=== PATIENT | female | born 1950 | race Caucasian/White ===

== ENCOUNTER → 2020-07-21 13:11 | Outpatient (BNVA) | payer MEDICARE, OTHER, SELFPAY | PROVIDERS: PCP Internal Medicine; Visit Provider Student in an Organized Health Care Education/Training Program | DX: Z13.89 Encounter for screening for other disorder (principal) | CPT/HCPCS: Q3014 ==

== ENCOUNTER → 2021-02-23 13:43 | Outpatient (BNVA) | payer MEDICARE, OTHER, SELFPAY | PROVIDERS: PCP Internal Medicine; Visit Provider Student in an Organized Health Care Education/Training Program | DX: M31.6 Other giant cell arteritis (principal); M34.9 Systemic sclerosis, unspecified; M81.0 Age-related osteoporosis without current pathological fracture; J84.9 Interstitial pulmonary disease, unspecified; I27.20 Pulmonary hypertension, unspecified; F17.210 Nicotine dependence, cigarettes, uncomplicated; Z88.2 Allergy status to sulfonamides; Z88.8 Allergy status to other drugs, medicaments and biological substances; Z79.52 Long term (current) use of systemic steroids; Z79.899 Other long term (current) drug therapy | CPT/HCPCS: 99212 ==

== ENCOUNTER 2021-10-11 10:44 | Outpatient (REF) | payer MEDICARE, OTHER, SELFPAY ==
[2021-10-11 13:40] LABS: Alanine Aminotransferase 10 U/L (0-31); Albumin Level 4.4 g/dL (3.5-5.0); Alkaline Phosphatase 93 U/L (39-117); Anion Gap 16 (12-20); Aspartate Amino Transferase 21 U/L (5-31); Bilirubin Total 0.6 mg/dL (0.0-1.0); Blood Urea Nitrogen 12 mg/dL (9-16); Calcium 10.1 mg/dL (8.4-10.2); Carbon Dioxide 24 mmol/L (22-29); Chloride 104 mmol/L (96-108); Estimated Glomerular Filt Rate > 60; Glucose Random 82 mg/dL (60-115); Potassium 4.1 mmol/L (3.3-5.1); Sodium 140 mmol/L (135-145); Total Protein 7.6 g/dL (6.5-8.0)
[2021-10-11 16:26] LABS: Erythrocyte Sedimentation Rate 86 MM/HR (0-20)
[2021-10-15 13:26] LABS: Vitamin D 25-OH, D2 <4 ng/mL; Vitamin D 25-OH, D3 39 ng/mL; Vitamin D 25-OH, Total 39 ng/mL (30-100)
== END 2021-10-11 10:45 | disposition home or self-care (01) ==
LOC: HO.LAB 10:44
PROVIDERS: PCP Internal Medicine; Visit Provider Internal Medicine Rheumatology
DX: M31.6 Other giant cell arteritis (principal); M34.9 Systemic sclerosis, unspecified; M81.0 Age-related osteoporosis without current pathological fracture; Z79.52 Long term (current) use of systemic steroids
CPT/HCPCS: 36415; 80053; 82306; 85652; 86140; 99212

== ENCOUNTER 2021-11-08 13:34 | Outpatient (REF) | payer MEDICARE, OTHER, SELFPAY ==
--- NOTE | ~2021-11-08 | XR_ITS ---
EXAMINATION: XR LUMBOSACRAL SPINE CLINICAL INFORMATION: Long-term use of steroids COMPARISON: None TECHNIQUE: Three views of the lumbosacral spine. FINDINGS: There is mild curvature of the lumbar spine to the right. There are multiple compression fractures and post kyphoplasty change of the T11 T12 L1 and L5 vertebral bodies. There is severe L2 compression fracture and moderate L3 compression fracture. These do not appear acute. There may be a severe T9 vertebral body compression fracture. Disc spaces are normal. There is lower lumbar spine facet arthritis. There is atherosclerotic disease. XR/XR lumbar spine 2-3V IMPRESSION: Multiple lower thoracic and lumbar vertebral body compression fractures.
== END 2021-11-08 13:35 | disposition home or self-care (01) ==
LOC: HO.XRAY 13:34
PROVIDERS: PCP Internal Medicine; Visit Provider Internal Medicine Rheumatology
DX: M81.0 Age-related osteoporosis without current pathological fracture (principal); Z79.52 Long term (current) use of systemic steroids
CPT/HCPCS: 72100

== ENCOUNTER 2021-11-22 10:39 | Outpatient (REF) | payer MEDICARE, OTHER, SELFPAY ==
[2021-11-22 12:31] LABS: MANUAL DIFF FLAG NO
[2021-11-22 13:18] LABS: Basophils Absolute Auto 0.1 X10*3/uL (0.0-0.2); Basophils Percent Auto 0.8 % (0-2); Eosinophils Absolute Auto 0.1 X10*3/uL (0.0-0.4); Eosinophils Percent Auto 0.8 % (0-4); Hematocrit 37.4 % (37.0-47.0); Hemoglobin 12.3 g/dl (12.0-16.0); Imm Gran Abs Auto 0.05 X10*3/uL (0.00-0.03); Imm Gran Pct Auto 0.4 % (0.0-0.4); Lymphocytes Absolute Auto 2.9 X10*3/uL (1.2-4.9); Mean Corpuscular HGB Conc 32.9 g/dl (31.0-35.0); Mean Corpuscular Volume 91.2 fL (80.0-98.0); Mean Platelet Volume 8.6 fL (9.4-12.3); Monocytes Absolute Auto 1.1 X10*3/uL (0.1-1.2); Monocytes Percent Auto 8.6 % (2-11); Neutrophils Percent Auto 65.4 % (45-73); Platelet Count 287 X10*3/uL (160-400); White Blood Count 12.2 X10*3/uL (4.8-10.8)
[2021-11-22 13:45] LABS: C Reactive Protein 0.34 mg/dL (< or = 0.50)
[2021-11-22 14:04] LABS: Erythrocyte Sedimentation Rate 17 MM/HR (0-20)
[2021-11-23 13:16] LABS: Prot Elec - Alpha1 0.2 g/dL (0.2-0.3); Prot Elec - Beta 1 0.5 g/dL (0.4-0.6); Prot Elec - Beta 2 0.4 g/dL (0.2-0.5); Prot Elec - Gamma 0.8 g/dL (0.8-1.7); Prot Elec - Total Protein 6.9 g/dL (6.1-8.1)
== END 2021-11-22 10:40 | disposition home or self-care (01) ==
LOC: HO.LAB 10:39
PROVIDERS: PCP Internal Medicine; Visit Provider Internal Medicine Rheumatology
DX: M81.0 Age-related osteoporosis without current pathological fracture (principal); R70.0 Elevated erythrocyte sedimentation rate; M31.6 Other giant cell arteritis; M34.9 Systemic sclerosis, unspecified; M47.816 Spondylosis without myelopathy or radiculopathy, lumbar region; Z79.52 Long term (current) use of systemic steroids
CPT/HCPCS: 36415; 84165; 85025; 85652; 86140; 99212

== ENCOUNTER 2022-05-02 12:37 | Outpatient (REF) | payer MEDICARE, OTHER, SELFPAY ==
[2022-05-02 14:58] LABS: C Reactive Protein 0.24 mg/dL (< or = 0.50)
[2022-05-02 15:12] LABS: Erythrocyte Sedimentation Rate 20 MM/HR (0-20)
== END 2022-05-02 12:38 | disposition home or self-care (01) ==
LOC: HO.WFDLDS 12:37
PROVIDERS: Visit Provider Internal Medicine Rheumatology
DX: M31.6 Other giant cell arteritis (principal); M34.9 Systemic sclerosis, unspecified; M81.0 Age-related osteoporosis without current pathological fracture; M47.816 Spondylosis without myelopathy or radiculopathy, lumbar region; Z79.52 Long term (current) use of systemic steroids
CPT/HCPCS: 36415; 85652; 86140; 99212

== ENCOUNTER 2023-02-05 13:46 | Outpatient (REF) | payer MEDICARE, OTHER, SELFPAY | END 2023-02-05 13:47 | disposition home or self-care (01) | LOC: HO.LAB 13:46 | PROVIDERS: PCP Internal Medicine; Visit Provider Internal Medicine Rheumatology | DX: M31.6 Other giant cell arteritis (principal); M47.816 Spondylosis without myelopathy or radiculopathy, lumbar region; M81.0 Age-related osteoporosis without current pathological fracture; M34.9 Systemic sclerosis, unspecified | CPT/HCPCS: 36415; 80048; 85652; 86140; 99212 ==

== ENCOUNTER 2023-07-16 13:53 | Outpatient (REF) | payer MEDICARE, OTHER, SELFPAY ==
[2023-07-16 16:01] LABS: C Reactive Protein 0.17 mg/dL (< or = 0.50)
[2023-07-16 16:26] LABS: Erythrocyte Sedimentation Rate 20 MM/HR (0-20)
[2023-07-20 14:03] LABS: Vitamin D 25-OH, D2 <4 ng/mL; Vitamin D 25-OH, D3 31 ng/mL; Vitamin D 25-OH, Total 31 ng/mL (30-100)
== END 2023-07-16 13:54 | disposition home or self-care (01) ==
LOC: HO.LAB 13:53
PROVIDERS: PCP Internal Medicine; Visit Provider Internal Medicine Rheumatology
DX: M81.0 Age-related osteoporosis without current pathological fracture (principal); M31.6 Other giant cell arteritis; M34.9 Systemic sclerosis, unspecified; M47.816 Spondylosis without myelopathy or radiculopathy, lumbar region
CPT/HCPCS: 36415; 82306; 85652; 86140; 99212

== ENCOUNTER 2023-07-16 13:53 | Outpatient (AMB) | payer MEDICARE, OTHER, SELFPAY ==
[2023-07-16 13:55] VITALS: BP 116/68; PULSE 97; BMI 19.6
--- NOTE | 2023-07-16 13:55 | MHC.OFFVIS ---
Intake Vital Signs 07/16/23 13:55 Height 4 ft 8.5 in Weight 89 lb 1.068 oz BMI 19.6 BP 116/68 Blood Pressure Location Lt brachial Position Sitting Pulse 97 Pulse Source Palpation Intake Visit Reasons: gca Intake Note: Patient presents today to follow up on GCA. Last seen by Juan 02/05/23. 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 Accompanied by: Son Allergies hydroxychloroquine [Plaquenil] Allergy (Intermediate, Verified 07/16/23 13:59) rash nabumetone Allergy (Intermediate, Verified 07/16/23 13:59) rash Sulfa (Sulfonamide Antibiotics) Allergy (Intermediate, Verified 07/16/23 13:59) rash Medication List - Last Reconciled 07/16/23 by Scot Perez MD calcium carbonate-vitamin D3 600 mg-20 mcg (800 unit) (Caltrate with Vitamin D3) 1 tab PO DAILY lansoprazole 30 mg PO DAILY metoclopramide HCl 5 mg PO DAILY multivitamin (Daily Multi-Vitamin tablet) 1 tab PO DAILY prednisone 1 mg PO DAILY HPI HPI Comments History of Present Illness Details The patient presents with his son today for 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 She again describes herself as ?falling apart?. She has difficulty seeing and has been told she needs cataract surgery but so far has declined. She admits she is not able to see enough to drive or to read currently. She gets pain in the back when she walks. She has known kyphosis with lumbar osteoarthritis. She still gets Raynaud's symptoms but has had never had any fingertip ulcerations. She was hospitalized briefly in April with a syncopal episode. No clear etiology was found. She has not had any further episodes. She does note some difficulty at times with balance. She has not fallen however. She also has pain in the right foot where she has a hammertoe deformity that is painful. She has been told she could never have surgery because of scleroderma. She does use compression stockings on a regular basis but has trouble when she tries to take them off because they catch on the toe deformities. [facility] Medical History (Updated 05/02/22 @ 12:44 by Scot Perez MD) Osteoarthritis of lumbar spine Scleroderma Giant cell arteritis Surgical History No pertinent past surgical history Family History Mother Congenital heart problem Father Arthritis Social History Household Members: Spouse Housing: House Alcohol intake: never Patient Tobacco Use Status: Current everyday Tobacco user Cigarettes Per Day: 10 Years Smoked: 40 Review of Systems Const Details: Negative for appetite change, weight change, fever, chills, malaise and fatigue Eyes Details: Worsening visual acuity. Some dry eyes peer Negative for dry eyes,headaches ENT Details: Some oral dryness. Negative for hearing change, tinnitus, oral ulcer, nose bleeds. Card Details: Syncopal episode back in April as noted above. She has some noted pulmonary hypertension on echocardiogram a few years ago. Negative chest pain, edema and palpitations Resp Details: Negative for SOB, cough and wheezing GI Details: Negative indigestion/heartburn, nausea, abdominal pain, bowel changes, diarrhea, constipation and bloody stool. Skin/Breast Details: She still gets occasional Raynaud's symptoms. Negative for itching, rash, hives, sun sensitivity, and skin cancer Neuro Details: Unsteady at times walking. Negative for epilepsy, palsy, stroke, changes in speech, tingling and weakness Psych Details: Negative for anxiety, depression and stress Endo Details: Negative for polyuria and polydypsia Suman/Lymph Details: Negative for excessive bruising or bleeding. Physical Exam Vital Signs: Last Vital Signs Pulse 97 07/16/23 13:55 BP 116/68 07/16/23 13:55 BMI result Body Mass Index 19.6 APPEARANCE: Patient in no acute distress EYES no redness, pupils equal and reactive to light, eyelids normal. ophthalmoscope exam is not possible due to cataracts. EARS: External ear normal, canal clear and tympanic membrane normal. NOSE/SINUS: Airflow through both nares, no nasal discharge, no bleeding THROAT: Oral mucosa moist, no ulcerations NECK: No thyromegaly or masses, no adenopathy, trachea midline. HEART: Regulrar rhythm, S1-S2 heard, no murmurs, rubs or gallops. LUNG: Clear to percussion and auscultation ABD: Normal bowel sounds, no organomegaly, masses or tenderness. EXTREMITIES:? Trace ankle and pedal edema.? Compression stockings in place.?? No calf tenderness, normal peripheral pulses. NEURO:? Oriented and alert x3.? No focal weakness.? Reflexes symmetric.? Gait somewhat unsteady. Posture is stooped. SKIN:? There is duskiness over the tips of all the fingers.? No fingertip ulcerations or pitting.? The skin is tight distal to the PIP region.? No tenderness in nail fold areas.? There is also some slight rubor noted over the tips of the elbows and the knees but no breaks in the skin. JOINT EXAM:.?? Cervical Spine:.? Decreased range of motion without pain; no tenderness. Thoracic Spine:.? Some scoliosis and kyphosis but No tenderness on palpation. Lumbar Spine:.? Alignment normal.? Next mild pain with flexion 45 degrees.? No tenderness. Chest Wall:.? No tenderness, swelling, increased warmth or erythema. Hands:.? Normal pain-free range of motion without tenderness, swelling, increased warmth or erythema. Able to make a full fist and has a good toolroom attendant strength.? No sensory loss or thenar atrophy. Wrists:.? Normal pain-free range of motion without tenderness, swelling, increased warmth or erythema. Elbows:. Normal pain-free range of motion without tenderness, swelling, increased warmth or erythema. Shoulders:.??Slight upper back and trapezial pain with extremes of normal range of motion.? No adenopathy, tenderness, weakness, swelling, increased warmth or erythema. Hips:.? Right:? Mild lumbar pain with extremes of rotation.? No groin pain with motion.? Left: Full range of motion without pain. Hip bursa:.? No tenderness. Knees:.?? Normal pain-free range of motion with slight patellofemoral crepitus but no effusion,? tenderness, swelling, increased warmth or erythema. Ankles:.? Normal pain-free range of motion without tenderness, swelling, increased warmth or erythema. Feet:? There is bilateral hallux valgus deformity, 1st MTP bony enlargement and slight tenderness.? There is 2nd toe hammertoe deformities bilaterally.? Right 2nd toe has some dorsal tenderness but no breaks in the skin. She has some slight tenderness over the dorsum of the foot on the right where she sometimes feels a lump but there is no clear lump palpable today.? No redness, soft tissue swelling, increased warmth or erythema. ? Results Reviewed Results Reviewed: Laboratory Tests 02/05/23 15:14 ESR 29 H Creatinine 0.74 Laboratory Tests 02/05/23 15:14 C-Reactive Protein 0.21 April 25 lab work from [facility]: Creatinine 0.8, albumin 4.2, transaminases normal, hemoglobin 12.4 Assessment & Plan Assessment & Plan (1) Osteoporosis: Comment: multiple lumbar and thoracic compression fractures. 11/2021 - Declines Rx for osteoporosis Code(s): M81.0 - Age-related osteoporosis without current pathological fracture (2) Scleroderma: Comment: Dx 1999: Raynaud's symptoms, sclerodactyly, mild pulmonary hypertension, ocular dryness, esophageal dysmotility. Negative Sclerderma Ab and anticentromere antibody Code(s): M34.9 - Systemic sclerosis, unspecified (3) Osteoarthritis of lumbar spine: Code(s): M47.816 - Spondylosis without myelopathy or radiculopathy, lumbar region (4) Giant cell arteritis: Comment: clinical Dx 2014, ? TA biopsy results? prrednisone since then Code(s): M31.6 - Other giant cell arteritis Plan Once again I do not detect any activity of her giant cell arteritis. We will recheck acute phase reactants today but they been negative in the past year or 2. We will stop the prednisone at this point. In terms of her functionality I think she is limited because of poor vision. She seems to have given up on the possibility she could do more and does not seem to push herself. Some of this is of course because she does not see well and might be at risk for falling. I encouraged her to follow through with the least one cataract surgery to see how it worked out. She said her father had an autoimmune disorder and the cataract surgery did not work well. I told her maybe the skills and techniques of Ophthalmology today would be more advantageous for her since most patients are able to undergo the surgery without any problems. She should plan to follow through with cardiology workup; she does have an appointment apparently in the next week or 2. I told her that I did not think that surgery for her feet was out of the question. She does not have digital ulcers. The goal of surgery would be to reduce the pain in her foot so she could walk more evenly. She will think about the option of seeing a surgeon in the future. A follow-up at about 5 months seems reasonable. Orders: Orders Vitamin D 25-OH (D2 and D3) Today M81.0 - Age-related osteoporosis without current pathological fracture C Reactive Protein Today M31.6 - Other giant cell arteritis Erythrocyte Sedimentation Rate Today M31.6 - Other giant cell arteritis Medications: Discontinued prednisone Discontinued Reason: Doctor's Order 1 mg PO DAILY 60 tabs 3RF M31.6 - Other giant cell arteritis Coding Level of Care Code Est Pt Level 3 (39947) Diagnoses Osteoporosis M81.0 Scleroderma M34.9 Osteoarthritis of lumbar spine M47.816 Giant cell arteritis M31.6
== END 2023-07-16 15:07 | disposition home or self-care (01) ==
PROVIDERS: PCP Internal Medicine; Visit Provider Internal Medicine Rheumatology
DX: M81.0 Age-related osteoporosis without current pathological fracture (principal); M34.9 Systemic sclerosis, unspecified; M47.816 Spondylosis without myelopathy or radiculopathy, lumbar region; M31.6 Other giant cell arteritis
CPT/HCPCS: 99213